=== PATIENT | male | born 1965 | race Caucasian/White ===

== ENCOUNTER → 2020-09-15 08:06 | Outpatient (CLI) | payer MEDICARE ==
[~2020-09-15 08:06] MED LIST: ALDACTONE25 MG PO; AZITHROMYCIN500 MG PO; CHILDREN'S ASPI81 MG PO; COUMADIN10 MG PO; COZAAR25 MG PO; LIPITOR10 MG PO; OMNICEF300 MG PO; PLAVIX75 MG PO; PROTONIX40 MG PO
== END | disposition home or self-care (01) ==
LOC: D.LAB 08:06
PROVIDERS: ATTEND Internal Medicine Pulmonary Disease
DX: Z20.822 Contact with and (suspected) exposure to COVID-19 (principal)

== ENCOUNTER → 2020-09-21 14:14 | Outpatient (CLI) | payer MEDICARE ==
--- NOTE | 2020-09-22 16:20 | CRPLANR ---
[facility] CARDIAC REHABILITATION PROGRAM INDIVIDUALIZED TREATMENT PLAN Certification Period: From 07/14/2020 to 12/14/2020 Initial Prescription 07/14/2020 Renewal Prescription 08/21/2020, 09/22/2020, 10/14/2020, 11/13/2020 (Every 30 days) Maintenance Prescription (Every 90 days) Dear LEENA Britton MD, We are required by The Joint Commission to keep current orders and treatment plans on all of our outpatients. Please review and sign the attached information. Your prompt reply 1s greatly appreciated. Thank you for this referral. Mechanical Engineering Advisor Signature Cardiac Rehab: X Pulmonary Rehab: Patient's Name: LANDEN BALTAZAR Risk Stratisfication: High: Moderate: XLow: Diagnosis/Risk Factors: PTCA/STENT - 06/26/2020 / HTN, DECREASED EXERCISE, STRESS, INCREASED CHOLESTEROL, HX OF CANCER. Plan of Treatment/goals: MONITOR ON TELEMETRY DURING EACH EXERCISE SESSION. TEACH ON RISK FACTOR MODIFICATION. TARGET HEART: 114 - 130 BPM. HTN GOAL BR <140/90 mmHg OR< 130/80 IF DIABETIC OR CHRONIC KIDNEY DISEASE. CHOLESTEROL GOAL: LDL <100 MG/DL, IF TRIGLYCERIDES >200 MG/DL, NON-HDL SHOULD BE< 130 MG/DL, LDL < 70 MG/DL FOR HIGH RIGH PATIENTS. WEIGHT MANAGEMENT GOAL: PROGRESS TOWARD WEIGHT LOSS GOAL (RECOMMEND RATE OF l/2 TO 1 POUND PER WEEK). HOME ACTIVITY GOAL: 30 MINUTES OF EXERCISE AT LEAST 3-5 DAYS PER WEEK WITH OPTIMAL OF 7 DAYS PER WEEK. STRESS MANAGEMENT GOALS: RELAXATION TECHNIQUES, POSITIVE SUPPORT SYSTEM. CARDIAC REHAB IS ESSENTIAL THERAPY Frequency and duration of service: 3 x wk for 12 wks Exercise Plan/Goals: 1. NUSTEP - LEVEL 1-8@ 60-100 S/M X 10-30 MINUTES. 2. UPPER CYCEL - 6-30 MARTINEZ@ 40-90 RPM X 10-20 MINUTES. 3. TREADMILL - 1-3 MPH@ 0-5% GRADE X 5-30 MINUTES. 4. AIRDYNE - 20-50 RPM X 5-15 MINUTES. Progress Reports: TO FOLLOW I am in agreement with the above Individualized Treatment Plan for this patient under my care. Referring Physician Signature: Date: Time: _ I am in agreement with the above Individualized Treatment Plan. Python Engineer Signature: Date: Time: [id number] at 2010 at 1620 CC: [id number] DICTATION DATE: 09/22/20 1601 PAN PUSHER: ERON 09/22/20 1600 [facility] CLI [id number] 09/21/20 [place] [id number] [place] [id number]
== END | disposition home or self-care (01) ==
LOC: D.RT 14:00
PROVIDERS: ATTEND Internal Medicine Pulmonary Disease
DX: Z87.01 Personal history of pneumonia (recurrent) (principal); Z20.822 Contact with and (suspected) exposure to COVID-19

== ENCOUNTER → 2020-10-03 07:58 | Outpatient (CLI) | payer MEDICARE ==
--- NOTE | ~2020-10-03 | EC ---
PATIENT:LANDEN BALTAZAR DATE OF SERVICE: 10/03/20 SEX: M MEDICAL RECORD: [id number] DATE OF : [birth year] [facility] AGE OF PATIENT: 55 ADMISSION DATE: 10/03/20 REFERRING PHYSICIAN: INTERPRETING PHYSICIAN: LEENA SURESH MD ECHOCARDIOGRAM REPORT ECHO CHARGES 4 ECHO COMPLETE Date: 10/03/20 CLINICAL DIAGNOSIS: CARDIOMYOPATHY/ASSESS EF ECHOCARDIOGRAPHIC MEASUREMENTS (adult normal given) AC root (d.<3.7cm) 4.0 cm LV Septum d (<1.2 cm> 1.2 cm Valve Excursion 1.2 cm LV Septum (systole) 1.4 cm Left Atria (s.<4.0cm> 3.7 cm LVPW d(<1.2cm) 1.3 cm RV (d.<2.3cm) 2.7 cm LVPW (sytole) 1.5 cm LV diastole(<5.6CM) 4.7 cm MV E-F(>70mm/sec) cm LV systole 3.1 cm LVOT Diameter 1.9 cm MV exc.(>10mm) 1.9 cm Est.ejection fraction (50-75%) % DOPPLER: LVIT cm/sec A 91.0 cm/sec E 78.0 cm/sec LA cm/sec RVSP 23 mmHg LVOT 72 cm/sec AOP1/2T m/s Asc. Ao 113 cm/sec RVOT 76 cm/sec RA cm/sec PA 109 cm/sec AV Gradient Peak 5.10 mmHg AV Mean 2.56 mmHg AV Area 1.6 cm MV Gradient Peak 3.81 mmHg MV Mean 1.46 mmHg MV Area cm COMMENTS: Denture Processor: 2 SHERRY BARROS Production Associate: 3 Dr. Yung TAPE# PACS Pericardial Effusion N DATE OF SERVICE: 10/03/2020 Adequate 2D, color flow imaging, spectral Doppler, and M-Mode. FINDINGS: Mild LVH. LV internal dimensions are normal. There is hypokinesis of the apex particularly to the anterior apex and apical septum. Overall, LV function mildly reduced with lower limits of normal to 45% to 50%. Aortic valve is sclerosed without stenosis by Doppler interrogation. Left atrium is normal at 3.7 cm. Mitral valve shows no prolapse. Mild MR. Ride side is grossly normal. Trace TR. ECHOCARDIOGRAM REPORT [id number] LANDEN BALTAZAR TRANSINT:[id number] Voice Confirmation ID: [id number] DOCUMENT ID: [id number] LEENA SURESH MD CC: [id number] DICTATION DATE: 10/03/20 1448 MUD ANALYSIS WELL LOGGING CAPTAIN: 10/04/20 0018 DEP CLI 10/03/20 [place] [id number] [place] [id number]
== END | disposition home or self-care (01) ==
LOC: D.HCCECHO 07:58
PROVIDERS: ATTEND Internal Medicine Interventional Cardiology
DX: I42.9 Cardiomyopathy, unspecified (principal)